=== PATIENT | male | born 1945 | race Two or more races ===

== ENCOUNTER 2021-09-30 15:33 | Emergency (ER) | payer OTHER ==
[~2021-09-30] VITALS: Ht 182.9 cm; Wt 90.7 kg
[2021-09-30] MEDS ORDERED: LEVOTHYROXINE25 MCG (15:48)
[2021-09-30] MEDS ORDERED: COZAAR25 MG (15:49)
[2021-09-30] MEDS ORDERED: LIPITOR20 MG (15:49)
[2021-09-30] MEDS ORDERED: FELODIPINE ER10 MG (15:49)
[2021-09-30] MEDS ORDERED: CARDURA1 MG PO (15:57)
[2021-09-30] MEDS ORDERED: INDERAL XL80 MG PO (15:58)
[2021-09-30] MEDS ORDERED: ALPHAGAN P5 M2 (15:58)
[2021-09-30] MEDS ORDERED: TRAVATAN Z5 ML (15:58)
[2021-09-30] MEDS ORDERED: DICLOFENAC SODI75 MG PO (17:46)
[2021-09-30] MEDS ORDERED: MEDROLPACK PO (17:46)
== END 2021-09-30 18:09 | disposition home or self-care (01) ==
LOC: ER 15:33
DX: M54.50 Low back pain, unspecified (principal); M25.552 Pain in left hip; I10 Essential (primary) hypertension

== ENCOUNTER 2024-10-15 14:03 | Emergency (ER) | payer OTHER ==
[~2024-10-15] VITALS: Ht 182.9 cm; Wt 90.7 kg
[~2024-10-15 14:03] MED LIST: ALPHAGAN P5 M2; CARDURA1 MG PO; COZAAR25 MG; DICLOFENAC POTA50 MG PO; DICLOFENAC SODI75 MG PO; FELODIPINE ER10 MG; INDERAL XL80 MG PO; LEVOTHYROXINE25 MCG; LIPITOR20 MG; MEDROLPACK PO; METAXALONE800 MG PO; NEURONTIN300 MG PO; TRAVATAN Z5 ML
[2024-10-15] MEDS ORDERED: VALSARTAN-HCTZ1 EAC2 PO (15:34)
[2024-10-15] MEDS ORDERED: TAMSULOSIN HCL 0.4 MG CAP PO STA (17:04)
[2024-10-15] MEDS ORDERED: TAMSULOSIN HCL 0.4 MG CAP PO ONE (17:05)
[2024-10-15 17:29] LABS: BASO % 0.2 % (0.1-1.2); EOS # 0.07 (0.04-0.54); EOS % 0.7 % (0.7-7.0); LYMPH # 1.00 (1.18-3.74); LYMPH % 10.2 % (19.3-53.1); MEAN PLATELET VOLUME 10.90 fl (9.4-12.4); MONO # 0.66 (0.24-0.82); MONO % 6.7 % (4.7-12.5); NEUT # 8.02 (1.56-6.13); NEUT % 81.8 % (34.0-71.1); RED CELL DISTRIBUTION WIDTH 12.5 % (11.6-14.4)
[2024-10-15 17:29] LABS: URINE APPEARANCE Clear; URINE BILIRRUBIN Negative (NEGATIVE); URINE BLOOD Negative; URINE COLOR Dark Yellow; URINE GLUCOSE Negative (NEGATIVE); URINE KETONE Negative (NEGATIVE); URINE LEUKOCYTE Small; URINE NITRATE Negative; URINE PROTEIN 30 (NEGATIVE); URINE UROBILINOGEN 1.0 E.U./dl
[2024-10-15 17:33] LABS: URINE EPITHELIAL CELLS 1.8 uL (0.0-38.8); URINE RBC 32.9 uL (0.0-20.8); URINE WBC 96.5 uL (0.0-23.2)
[2024-10-15 17:40] LABS: URINE BACTERIA > 9821.5 uL (0.0-1933); URINE CAST 0.14 uL (0.0-1.40)
[2024-10-15 18:04] LABS: BUN CREA RATIO 18.0 (7.0-25.0); CREATININE SERUM 1.32 mg/dL (0.70-1.30); GFR 52.46; GLUCOSE FASTING 100.0 mg/dL (65-100); OSMOLALITY SERUM 287.0 MOSM/KG (275-295)
== END 2024-10-15 19:45 | disposition home or self-care (01) ==
LOC: ER 14:03
DX: R30.0 Dysuria (principal)